=== PATIENT | male | born 1995 | race Caucasian/White ===

== ENCOUNTER 2018-09-25 21:53 | Emergency (ER) | payer BC ==
[~2018-09-25] VITALS: Ht 180.3 cm; Wt 77.1 kg
[2018-09-25] MEDS ORDERED: GUAIFENESI100 MG/5 M ORAL (22:04)
[2018-09-25] MEDS ORDERED: ADDERAL20 MG ORAL (22:04)
[2018-09-25 22:12] VITALS: BP 113/68
[2018-09-25 22:33] VITALS: BP 113/68
[2018-09-25] MEDS ORDERED: CLINDAMYCIN HC300 MG ORAL (22:35)
[2018-09-25] MEDS ORDERED: IBUPROFEN600 MG ORAL (22:35)
--- NOTE | 2018-09-25 22:36 | Emergency Room Report ---
History of Present Illness General Chief Complaint: Flu Like Symptoms Source: Patient Present Illness HPI Is a 23-year-old male with no past mental history. He presents with chief complaint of sore throat and fever. Onset for last 3 days. Temperature is low- grade in the 99-100. Worse with swallowing. Pain is 7 out of 10. Also with fullness to the right ear. Does have some slight cough and congestion. Over- the-counter medicine not helping. Allergies: Coded Allergies: PENICILLINS (Verified Allergy, Unknown, 09/25/18) Patient History Past Medical History: see triage record, old chart reviewed Past Surgical History: none Pertinent Family History: none Social History: Denies: smoking Immunizations: other Reviewed Nursing Documentation: PMH: Agreed; PSxH: Agreed Nursing Documentation-PMH Past Medical History: No Stated History Review of Systems Constitutional: Reports: fever Eye: Denies: eye pain, blurred vision ENT: Reports: ear pain, throat pain; Denies: nose congestion, throat swelling Respiratory: Reports: cough; Denies: shortness of breath Cardiovascular: Denies: chest pain, palpitations Gastrointestinal: Denies: abdominal pain, diarrhea, nausea, vomiting Musculoskeletal: Denies: back pain, joint pain Skin: Denies: rash Neurological: Denies: headache, numbness Endocrine: Denies: increased thirst, increased urine Hematologic/Lymphatic: Denies: easy bruising All Other Systems: negative except mentioned in HPI Physical Exam Vital Signs Date Time Temp Pulse Resp B/P (MAP) Pulse Ox O2 Delivery O2 Flow Rate FiO2 09/25/18 22:00 99.9 77 12 113/68 98 Room Air fever Sp02 EP Interpretation: reviewed, normal General Appearance: well appearing, no apparent distress, alert Head: normocephalic, atraumatic Eyes: bilateral eye PERRL, bilateral eye EOMI ENT: hearing grossly normal, pharyngeal erythema Neck: full range of motion, supple, no meningismus Respiratory: chest non-tender, lungs clear, normal breath sounds Cardiovascular #1: regular rate, rhythm, no murmur Gastrointestinal: normal bowel sounds, non tender, no mass, no organomegaly, no bruit, non-distended Musculoskeletal: back normal, gait/station normal, normal range of motion Psychiatric: mood/affect normal Skin: warm/dry Medical Decision Making Diagnostic Impression: Primary Impression: Pharyngitis, acute Qualified Codes: J02.9 - Acute pharyngitis, unspecified ER Course Patient with an acute pharyngitis. Most likely viral in nature but with fever for 3 days, we'll cover for possible strep. No evidence of any area tonsillar abscess, retropharyngeal abscess or Viral angina. No evidence of meningitis. Last Vital Signs Date Time Temp Pulse Resp B/P (MAP) Pulse Ox O2 Delivery O2 Flow Rate FiO2 09/25/18 22:12 99.9 79 12 113/68 98 Room Air Status: unchanged Disposition: HOME, SELF-CARE Condition: Stable Scripts Ibuprofen* (MOTRIN*) 600 Mg Tablet 600 MG ORAL THREE TIMES A DAY, #30 TAB 0 Refills Prov: Abdoul Ibarra MD 09/25/18 Clindamycin Hcl (CLINDAMYCIN HCL) 300 Mg Capsule 300 MG ORAL THREE TIMES A DAY, #21 CAP Prov: Abdoul Ibarra MD 09/25/18 Additional Instructions: Increase fluids. Salt water gargle. Follow-up with your doctor in 7 days. Return if worse. Abdoul Ibarra MD Sep 25, 2018 22:36
== END 2018-09-25 22:41 | disposition home or self-care (01) ==
LOC: EMR 22:30
DX: J02.9 Acute pharyngitis, unspecified (principal); R50.9 Fever, unspecified; Z88.0 Allergy status to penicillin
CPT/HCPCS: 99282